=== PATIENT | female | born 1995 | race Hispanic/Latino ===

== ENCOUNTER → 2017-12-09 | Outpatient (REF) | payer OTHER | LOC: M SFHCCLAY 12:41 | DX: Z11.3 Encounter for screening for infections with a predominantly sexual mode of transmission (principal) ==

== ENCOUNTER → 2018-02-12 | Outpatient (REF) | payer OTHER ==
[2018-02-12 12:22] LABS: BASO # 0.1 10^3/uL (0.0-0.2); BASO % 1.1 % (0.0-1.0); EOS # 0.1 10^3/uL (0.0-0.50); EOS % 1.4 % (0.0-3.0); HEMATOCRIT 42.6 % (36.0-47.0); HEMOGLOBIN 14.6 g/dl (12.0-15.5); IMMATURE GRANULOCYTE % 0.2 % (0-3.0); LYMPH # 1.8 10^3/uL (1.5-6.5); LYMPH % 27.5 % (24.0-44.0); MEAN CORPUSCULAR HEMOGLOBIN 30.8 pg (27.0-33.0); MEAN CORPUSCULAR HGB CONC 34.3 g/dl (32.0-36.5); MEAN CORPUSCULAR VOLUME 89.9 fl (80.0-96.0); MONO # 0.6 10^3/uL (0.0-0.8); MONO % 8.5 % (0.0-5.0); NEUTROPHILS % 61.3 % (36.0-66.0); PLATELET COUNT, AUTOMATED 190 10^3/uL (150-450); RED BLOOD COUNT 4.74 10^6/uL (4.00-5.40); RED CELL DISTRIBUTION WIDTH 11.5 % (11.5-14.5); WHITE BLOOD COUNT 6.5 10^3/uL (4.0-10.0)
[2018-02-12 12:47] LABS: ALBUMIN 3.7 GM/DL (3.2-5.2); ALBUMIN/GLOBULIN RATIO 1.28 (1.00-1.93); ALKALINE PHOSPHATASE 52 U/L (45-117); ALT/SGPT 42 U/L (12-78); ANION GAP 7 MEQ/L (8-16); AST/SGOT 27 U/L (7-37); BILIRUBIN,TOTAL 0.4 MG/DL (0.2-1.0); BLOOD UREA NITROGEN 11 MG/DL (7-18); CARBON DIOXIDE LEVEL 26 MEQ/L (21-32); CHLORIDE LEVEL 109 MEQ/L (98-107); CHOLESTEROL LEVEL 206 MG/DL (<200); CHOLESTEROL RISK RATIO 5.722 (<5); CREATININE FOR GFR 0.78 MG/DL (0.55-1.30); FREE THYROXINE INDEX 2.1 % (1.3-4.8); GLOMERULAR FILTRATION RATE > 60.0 (>60); GLUCOSE, FASTING 80 MG/DL (70-100); HDL CHOLESTEROL 36 MG/DL (>40); NON-HDL-C 170 MG/DL; POTASSIUM SERUM 4.2 MEQ/L (3.5-5.1); SODIUM LEVEL 142 MEQ/L (136-145); T UPTAKE 30 % (30-39); THYROXINE (T4) 6.9 UG/DL (4.5-12.0); TOTAL PROTEIN 6.6 GM/DL (6.4-8.2); TRIGLYCERIDES LEVEL 150 MG/DL (<150)
[2018-02-12 13:57] LABS: TOTAL 25(OH) VITAMIN D 17.2 NG/ML (30.0-100.0)
[2018-02-18 08:27] LABS: 17 HYDROXY PROGESTERONE 57 ng/dL (.); TESTOSTERONE FREE (DIRECT) 4.5 pg/mL (0.0-4.2)
== END ==
LOC: M SFHCCLAY 08:42
DX: I10 Essential (primary) hypertension (principal); K21.9 Gastro-esophageal reflux disease without esophagitis; D35.2 Benign neoplasm of pituitary gland; L64.9 Androgenic alopecia, unspecified
CPT/HCPCS: 84146

== ENCOUNTER → 2018-06-17 | Outpatient (REF) | payer OTHER ==
[2018-06-17 17:04] LABS: CHOLESTEROL RISK RATIO 6.303 (<5)
[2018-06-17 17:08] LABS: TOTAL 25(OH) VITAMIN D 21.5 NG/ML (30.0-100.0)
== END ==
LOC: M SFHCCLAY 09:20
PROVIDERS: ATTEND Nurse Practitioner Family
DX: E78.49 Other hyperlipidemia (principal); E55.9 Vitamin D deficiency, unspecified

== ENCOUNTER → 2018-10-19 | Outpatient (CLI) | payer OTHER ==
[~2018-10-19] MED LIST: ACET1TAB16 PO; BIOT2500 PO; CABE0.5T PO; COLA100C5 PO; IBUP80TA PO; LOSA25TA14 PO; PROHANCE 279.3MG/ML 15ML VIAL (A9576) As Ordered ONE; PROHANCE 279.3MG/ML 5ML VIAL (A9576) As Ordered ONE; TRAM50TA2 PO; ZOLO50TA PO
--- NOTE | 2018-10-19 13:45 | REP ---
MRI PELVIS WITH AND WITHOUT CONTRAST: TECHNIQUE: Multiple sequences obtained in the axial, coronal, and sagittal planes prior to and following the intravenous administration of 18 mL ProHance. The uterus is markedly enlarged. It measures approximately 17.0 x 8.3 x 11.5 cm. Extensive fibroid changes are seen. A dominant intramural fibroid on the left involving the body of the uterus measures approximately 7.6 x 6.3 x 7.1 cm. This demonstrates diffuse enhancement in a mildly heterogeneous pattern. A large heterogeneous mass is seen in the endometrial canal inferiorly which is presumed to represent a submucosal fibroid. This demonstrates somewhat heterogeneous low signal on T1, with areas of both low and high signal diffusely on T2-weighted images. This measures approximately 7.9 x 5.8 x 6.3 cm. This demonstrates diffuse heterogeneous enhancement. 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 The inferior margin is at the internal cervical os. More superiorly in the fundus, there is a lobulated mass or conglomerate of small masses in the endometrial canal, likely representing a lobulated or conglomerate of submucosal fibroids, slightly hyperintense on T2 and demonstrating mild scattered enhancement. This measures about 4.2 x 3.1 x 2.8 cm. In the posterior fundal myometrium in an intramural location, another dominant fibroid measures approximately 3.9 x 3.3 x 4.2 cm. There are multiple other smaller fibroids scattered throughout the myometrium predominantly in the body and fundus. Portions of the fundal endometrium are seen but otherwise, the more inferior endometrium is obliterated by the extensive fibroid changes. Both ovaries are normal in size with no evidence of mass or cyst. Both are located in the superior pelvis and contain multiple normal size follicles. They are located adjacent to the uterine fundus bilaterally. There is no other evidence of pelvic mass or adenopathy. I do not see significant free fluid. IMPRESSION: Markedly enlarged uterus with extensive fibroid changes. The largest leiomyomas are measured and details are given above. There appears to be a dominant left uterine body intramural leiomyoma, a submucosal leiomyoma in the lower uterine segment demonstrating signal characteristics and enhancement most consistent with myoid degeneration, a submucosal fibroid or conglomerate of fibroids in the region of the fundal endometrium and a posterior fundal intramural leiomyoma. Multiple other smaller intramural leiomyomas are also visualized diffusely, predominantly in the body and fundus of the uterus. Electronically Signed by Kendall John MD 10/19/2018 05:40 P
== END ==
LOC: M RAD 09:02
PROVIDERS: ATTEND Obstetrics & Gynecology
DX: D25.9 Leiomyoma of uterus, unspecified (principal)
CPT/HCPCS: 72197; A9576

== ENCOUNTER 2018-10-26 09:36 | Inpatient (IN) | payer OTHER ==
[~2018-10-26] VITALS: Ht 167.6 cm; Wt 91.2 kg
[~2018-10-26 09:36] MED LIST changes: -ACET1TAB16 PO; -COLA100C5 PO; -IBUP80TA PO; -PROHANCE 279.3MG/ML 15ML VIAL (A9576) As Ordered ONE; -PROHANCE 279.3MG/ML 5ML VIAL (A9576) As Ordered ONE
[2018-10-26 10:01] LABS: MEAN CORPUSCULAR HEMOGLOBIN 26.1 pg (27.0-33.0); MEAN CORPUSCULAR HGB CONC 31.4 g/dl (32.0-36.5); MEAN CORPUSCULAR VOLUME 83.1 fl (80.0-96.0); PLATELET COUNT, AUTOMATED 239 10^3/uL (150-450); RED BLOOD COUNT 4.21 10^6/uL (4.00-5.40); WHITE BLOOD COUNT 6.6 10^3/uL (4.0-10.0)
[2018-10-26] MEDS ORDERED: ceFAZolin 2 GM/D5W 50 ML IV BAG (J0690 PER 500MG) As Ordered ONE (10:06)
[2018-10-26] MEDS ORDERED: HYDROmorphone HCL 2 MG/ML 1ML VIAL (J1170) As Ordered ONE (10:10)
[2018-10-26] MEDS ORDERED: fentaNYL 100 MCG/2 ML INJECTION (J3010) As Ordered ONE (10:11)
[2018-10-26] MEDS ORDERED: MIDAZOLAM INJ 2 MG/2 ML VIAL (J2250) As Ordered ONE (10:12)
[2018-10-26 10:20] LABS: HCG, SERUM QUALITATIVE NEGATIVE (NEGATIVE)
[2018-10-26] MEDS ORDERED: METOCLOPRAMIDE INJ 10MG/2ML VIAL (J2765) As Ordered ONE (10:21)
[2018-10-26] MEDS ORDERED: KETOROLAC 60 MG/2 ML VIAL (J1885) As Ordered ONE (10:21)
[2018-10-26] MEDS ORDERED: ONDANSETRON 4MG/2ML VIAL (J2405) As Ordered ONE (10:21)
[2018-10-26] MEDS ORDERED: LIDOCAINE 2% INJ 100 MG/5 ML SDV (FOR ANES.) As Ordered ONE (10:21)
[2018-10-26] MEDS ORDERED: dexameTHASONE 4 MG/ML 1ML VIAL (J1100) As Ordered ONE (10:21)
[2018-10-26] MEDS ORDERED: PROPOFOL 200 MG/20 ML VIAL As Ordered ONE (10:21)
[2018-10-26] MEDS ORDERED: ACETAMINOPHEN 1000MG 100ML IV BTL (OFIRMEV) (J0131 PER 10MG) As Ordered ONE (10:21)
[2018-10-26] MEDS ORDERED: ROCURONIUM BROMIDE 50 MG/5 ML VIAL As Ordered ONE ×3 (10:21→12:41)
[2018-10-26] MEDS ORDERED: PROPOFOL 500 MG/50 ML VIAL As Ordered ONE (10:22)
[2018-10-26] MEDS ORDERED: LR 1,000 ML IV ONE (10:30)
[2018-10-26] MEDS ORDERED: SUGAMMADEX SODIUM 500 MG/5 ML VIAL (BRIDION) As Ordered ONE (10:44)
[2018-10-26] MEDS ORDERED: METHYLENE BLUE 0.5% (5MG/ML) 10 ML AMP (PROVAYBLUE)(Q9968 PER 1MG) As Ordered ONE (10:49)
[2018-10-26] MEDS ORDERED: PHENYLephrine HCL 500 MCG/5 ML (100MCG/ML) SYRINGE (J2370) As Ordered ONE ×2 (12:26→12:29)
[2018-10-26] MEDS ORDERED: ePHEDrine SULFATE 25 MG/5 ML(5MG/ML) SYRINGE As Ordered ONE (12:31)
[2018-10-26] MEDS ORDERED: ATROPINE SULF 0.4 MG/ML 1ML VIAL (J0461) As Ordered ONE (12:32)
[2018-10-26] MEDS ORDERED: MORPHINE 1MG/ML IN 0.9% NACL 100ML IV BAG As Ordered ONE (15:35)
[2018-10-26] MEDS ORDERED: NS 1,000 ML IV SCH ×2 (15:44)
[2018-10-26] MEDS ORDERED: ONDANSETRON 4MG/2ML VIAL (J2405) IV PRN ×2 (15:45)
[2018-10-26] MEDS ORDERED: LR 1,000 ML IV SCH (15:45)
[2018-10-26] MEDS ORDERED: NALBUPHINE HCL 10 MG/ML AMP (J2300) IV PRN (15:45)
[2018-10-26] MEDS ORDERED: traMADol 50 MG TAB PO PRN (15:45)
[2018-10-26] MEDS ORDERED: MORPHINE 1MG/ML IN 0.9% NACL 100ML IV BAG IV PRN (15:45)
[2018-10-26] MEDS ORDERED: diphenhydrAMINE INJ 50MG/ML VIAL (J1200) IV PRN (15:45)
[2018-10-26] MEDS ORDERED: PROMETHAZINE INJ 25 MG/ML VIAL (J2550) IV PRN (15:45)
[2018-10-26] MEDS ORDERED: PERCOCET 5MG/325MG TAB PO PRN (15:45)
[2018-10-26] MEDS ORDERED: EPIDURAL/PCA KEYS XX PRN (15:45)
[2018-10-26] MEDS ORDERED: NALOXONE INJ 0.4 MG/1 ML VIAL (J2310) IV PRN (15:45)
[2018-10-26] MEDS ORDERED: KETOROLAC 30 MG/ML VIAL (J1885) IV PRN (15:45)
[2018-10-26] MEDS ORDERED: fentaNYL 100 MCG/2 ML INJECTION (J3010) IV PRN (15:45)
[2018-10-26] MEDS ORDERED: METOCLOPRAMIDE INJ 10MG/2ML VIAL (J2765) IV PRN (15:45)
[2018-10-26 16:24] LABS: HEMATOCRIT 32.3 % (36.0-47.0); HEMOGLOBIN 10.1 g/dl (12.0-15.5); MEAN CORPUSCULAR HEMOGLOBIN 26.3 pg (27.0-33.0); MEAN CORPUSCULAR HGB CONC 31.3 g/dl (32.0-36.5); MEAN CORPUSCULAR VOLUME 84.1 fl (80.0-96.0); PLATELET COUNT, AUTOMATED 215 10^3/uL (150-450); RED BLOOD COUNT 3.84 10^6/uL (4.00-5.40); WHITE BLOOD COUNT 15.6 10^3/uL (4.0-10.0)
[2018-10-26 17:25] VITALS: BP 133/79
[2018-10-26 17:45] VITALS: BP 128/80
[2018-10-26 19:15] VITALS: BP 131/81
[2018-10-26] MEDS: DOCUSATE SODIUM 100 MG CAP PO SCH (20:14)
[2018-10-26] MEDS: SERTRALINE HCL 50 MG TAB PO SCH (20:14)
[2018-10-26] MEDS: LOSARTAN 25 MG TAB PO SCH (20:14)
[2018-10-26 20:15] VITALS: BP 132/80
[2018-10-26] MEDS: KETOROLAC 30 MG/ML VIAL (J1885) IV SCH (20:15)
[2018-10-26 21:13] VITALS: BP 132/76
[2018-10-26 22:00] VITALS: BP 132/81
[2018-10-27] VITALS (8 sets, daily range): BP systolic 108–135; BP diastolic 64–80
[2018-10-27] MEDS: KETOROLAC 30 MG/ML VIAL (J1885) IV SCH ×3 (03:12→15:12)
[2018-10-27 07:25] LABS: BASO % 0.2 % (0.0-1.0); LYMPH # 1.4 10^3/uL (1.5-6.5); MEAN CORPUSCULAR HEMOGLOBIN 26.4 pg (27.0-33.0); MONO # 1.5 10^3/uL (0.0-0.8); NEUTROPHILS # 10.8 10^3/uL (1.8-7.7); NEUTROPHILS % 78.2 % (36.0-66.0); PLATELET COUNT, AUTOMATED 200 10^3/uL (150-450); RED BLOOD COUNT 3.41 10^6/uL (4.00-5.40); WHITE BLOOD COUNT 13.8 10^3/uL (4.0-10.0)
[2018-10-27] MEDS: DOCUSATE SODIUM 100 MG CAP PO SCH ×2 (08:52→20:56)
--- NOTE | 2018-10-27 08:59 | NUR ---
Progress note Postoperative day #1 S: Pain well controlled. Feeling well/improved. She is ambulating without any difficulty. Malik catheter recently removed. Tolerating a regular diet. Vaginal bleeding is minimal. Denies fever, chills, nausea, vomiting, headache, shortness breath, chest pain. O: Normotensive, normal heart rate, afebrile Urine output adequate Heart regular rate and rhythm Lungs clear to auscultation bilaterally Abdomen soft, nontender, nondistended, no guarding or rebound tenderness. Incision bandage dry Extremities nonedematous, nontender. SCDs are on and functioning Labs: Preoperative H&H: 11.0/35.0 Immediate postop H&H: 10.1/32.3 (1 unit packed red blood cells transfusion intraoperatively) Postoperative day 1 H&H: 9.0/29.0 A/P: Postoperative day #1 status post total abdominal hysterectomy and cystoscopy. Patient is recovering well. She is hemodynamically stable, afebrile, with good pain control. -Routine postoperative care and advancement; to void spontaneously later this morning -Intraoperative course reviewed -Postoperative care instructions reviewed. -Anticipate discharge to home later this evening or tomorrow morning. Karolyn Abad, DO
--- NOTE | 2018-10-27 18:55 | RO ---
DATE OF PROCEDURE: 10/26/2018 PREOPERATIVE DIAGNOSIS: Symptomatic uterine leiomyoma, abnormal uterine bleeding and chronic pelvic pain. POSTOPERATIVE DIAGNOSIS: Symptomatic uterine leiomyoma, abnormal uterine bleeding and chronic pelvic pain. PROCEDURE PERFORMED: Total abdominal hysterectomy and cystoscopy. SURGEON: Torrey Abad DO STEEL TESTER: David Starks MD. (Essential role in surgical site exposure and assistance with all aspects of the hysterectomy.) ANESTHESIA TYPE: General endotracheal. SPECIMENS TO PATHOLOGY: Uterus and cervix. ESTIMATED BLOOD LOSS: 500 mL. FLUIDS REPLACED: 2500 mL lactated Ringer's and one unit of packed red blood cells. DRAINS: Urine output Malik catheter 500 mL. COMPLICATIONS: None. PREOPERATIVE ANTIBIOTICS: Ancef 2 grams IV times one given within 30 minutes of the start of the procedure. INDICATION: The patient is a 23-year-old 0 with a longstanding history of a leiomyomatous uterus that has caused abnormal uterine bleeding and chronic pelvic pain. She already had a laparoscopic myomectomy in 2014. Since then, she's experienced regrowth of several large fibroids obliterating the uterine cavity, and there is not any normal uterus that is seen worth saving to preserve fertility per a recent MRI. She has been counseled regarding the MRI findings, and she is ready to proceed with a total abdominal hysterectomy with the plan of ovarian retention. INTRAOPERATIVE FINDINGS: Enlarged leiomyomatous uterus consistent with MRI findings, very large lower uterine segment/cervical fibroid, which made it very difficult to initially elevate the uterus out of the pelvis. See dictation for further details. Normal adnexa and ovaries bilaterally. DESCRIPTION OF PROCEDURE: After the patient was counseled and consented on the risks, benefits, indications and alternatives of the procedure, informed consent was obtained. She was taken to the operating room with an IV running and placed on the operating table in dorsal supine position. General anesthesia was administered, and the airway secured without any difficulty. She was placed in the low lithotomy position. She was prepared and draped in the normal sterile fashion. A time-out was performed per protocol. Malik catheter had been placed under sterile conditions. After the time out, a Pfannenstiel incision was made with a 10 blade and carried down to the level of the rectus sheath fascia. The rectus sheath fascia was incised in the midline, and the fascia was extended bilaterally with Rashid scissors. The intraperitoneal cavity was elevated with the use of Abida forceps and hemostats. The peritoneum was incised with Metzenbaum scissors without any difficulty. A large omental adhesion to the anterior abdominal wall and fundus of the uterus was reduced with sharp dissection and with use of the Bovie cautery. After releasing the uterus and omentum from the anterior abdominal wall, the bowel was packed away with damp laparotomy sponges. The Bookwalter retractor was placed. Abida clamps were placed on each cornu of the uterus, and we were unable to elevate the uterus given the presence of the large fibroid taking up all the space in the posterior cul-de-sac. The round ligaments on each side were able to be identified. The round ligaments were clamped, suture ligated and then cut. The right and left broad ligaments, anteriorly and posteriorly, were dissected with the Metzenbaum scissors. A window was created underneath the utero-ovarian ligament on each side. The utero-ovarian ligaments were clamped, cut and suture ligated, thus freeing both ovaries. Both IP ligaments were intact, thus preserving the vascular flow to both ovaries. The ovaries were pushed cephalad along with the bowel packing. The uterine vasculature on each side was identified, then sequentially clamped, cut and suture ligated using Mary-Ivan clamps. Eventually, we reached the level of the uterine vasculature at the level of the cervix. The uterus was quite abnormal in its size, shape and contour. It was very difficult to continue on without amputating the uterus since we had clamped the uterine vasculature and sequentially moved it down the uterine vasculature close to the level of the cervix. The decision was made to remove the Bookwalter retractor, and to amputate the body of the uterus just above our last suture on each side. This allowed us to see the large fibroid that was in the lower uterine segment/cervix. The amputation was performed with the Bovie cautery and with Rashid scissors. The large cervical fibroid that remained was removed by shelling it out of what remained of the dilated internal os of the cervix and lower uterine segment. We sequentially clamped, cut, and suture ligated underneath this tissue, thus amputating what remained of the cervix and lower uterine segment. The specimen was sent to pathology for permanent section. The remaining vaginal cuff was closed with 0# Vicryl with a series of [id number] stitches. The peritoneum was incorporated into this vaginal cuff closure. The uterosacral ligaments were easily identified. The ureters were identified and noted to be well away from this area of dissection and surgery. After closure of the vagina and achieving hemostasis, the decision was made to perform a cystoscopy. The Malik catheter was removed. The cystoscope was placed into the bladder with excellent distension of the bladder. No suture material noted in the dome of the bladder, and no cystotomy was noted. Bilateral UO jets were visualized, thus indicating intact ureters. The cystoscope was removed. A new Malik catheter was placed. A glove switch was performed. Attention was turned back to the abdomen. The vaginal cuff was re-inspected. A small amount of peritoneal bleeding was cauterized with the Bovie. An additional [id number] stitch was placed over the vaginal cuff centrally. Excellent hemostasis was noted. The pelvis was irrigated. After evacuating the irrigation, Aleksandra was placed over the vaginal cuff. Excellent hemostasis was noted after placement of the Aleksandra. All the laparotomy sponges were removed and the adnexa/ovaries on each side were inspected and noted be hemostatic without any masses. After removal of all the laparotomy sponges, the official sponge, needle and instrument counts were correct. The peritoneum was closed with #3-0 Vicryl in a running fashion. The rectus muscle bellies were noted to be hemostatic. The fascia was closed with #0 Vicryl in running fashion. The subcutaneous layer was closed with #3-0 Vicryl in running fashion, and the skin was closed with #4-0 Monocryl in subcuticular fashion. Bandage was placed over the incision. Sponge, lap, needle and instrument counts were again correct. I performed one final vaginal exam. All instruments had been removed from the vagina. There was no cervix palpated on vaginal exam. The patient tolerated the entire procedure very well. She was transferred to the post-anesthesia care unit (PACU) in good and stable condition. ANDRAE
[2018-10-27] MEDS ORDERED: ACETAMINOPH W/CODEINE #3 TAB UD PO PRN ×2 (20:00)
[2018-10-27] MEDS: SERTRALINE HCL 50 MG TAB PO SCH (20:55)
[2018-10-27] MEDS: LOSARTAN 25 MG TAB PO SCH (20:56)
[2018-10-27] MEDS: IBUPROFEN 800 MG TAB PO SCH (23:22)
[2018-10-28 04:00] VITALS: BP 113/68
[2018-10-28] MEDS: IBUPROFEN 800 MG TAB PO SCH (06:27)
[2018-10-28] MEDS ORDERED: ACET1TAB16 PO (07:15)
[2018-10-28] MEDS ORDERED: IBUP80TA PO (07:15)
[2018-10-28] MEDS ORDERED: COLA100C5 PO (07:15)
[2018-10-28 08:00] VITALS: BP 116/62
[2018-10-28] MEDS: DOCUSATE SODIUM 100 MG CAP PO SCH (08:49)
--- NOTE | 2018-10-28 09:34 | NUR ---
Discharge summary Admission date: 10/26/18 Discharge date: 10/28/18 Admission diagnosis: symptomatic uterine leiomyomas; abnormal uterine bleeding and chronic pelvic pain. Discharge diagnosis: same. Discharge medications: Tylenol #3, Motrin, Colace Discharge summary: 23yo G0 with a long-standing history of a symptomatic fibroid uterus. She was extensively counseled regarding treatment options during her care as an outpatient. She elected to proceed with hysterectomy. She underwent a total abdominal hysterectomy (uterus and cervix). Ovaries were retained. Intraoperative blood loss was estimated to be around 500ml. She received one unit of prbc during her surgery. No intraoperative complications were encountered. By postoperative day #2 she was meeting all discharge criteria. She has plans to return to [employer] in the [facility]. Her flight is tomorrow. She is stable for her planned air travel. Her mother will be accompanying her. Routine fever, infectious, pain, bleeding, and wound care instructions were reviewed. On date of hospital discharge: S: Pain well controlled. Feeling well/improved. She is ambulating without any difficulty. Malik catheter recently removed. Tolerating a regular diet. Vaginal bleeding is minimal. Denies fever, chills, nausea, vomiting, headache, shortness breath, chest pain. O: Normotensive, normal heart rate, afebrile Urine output adequate Heart regular rate and rhythm Lungs clear to auscultation bilaterally Abdomen soft, nontender, nondistended, no guarding or rebound tenderness. Incision bandage dry Extremities nonedematous, nontender. SCDs are on and functioning Labs: Preoperative H&H: 11.0/35.0 Immediate postop H&H: 10.1/32.3 (1 unit packed red blood cells transfusion intraoperatively) Postoperative day 1 H&H: 9.0/29.0 A/P: Postoperative day #2 status post total abdominal hysterectomy and cystoscopy. Patient is recovering well. She is hemodynamically stable, afebrile, with good pain control. See discharge summary above. Karolyn Abad DO
== END 2018-10-28 11:00 | disposition home or self-care (01) | DRG 743 ==
LOC: M OR 09:36 → M PED 17:10
PROVIDERS: ADMIT Obstetrics & Gynecology; ATTEND Obstetrics & Gynecology
PROC: 0UTC0ZZ Resection of Cervix, Open Approach (ICD-10-PCS; 2018-10-26)
PROC: 0UT90ZZ Resection of Uterus, Open Approach (ICD-10-PCS; principal; 2018-10-26 11:15)
DX: D25.9 Leiomyoma of uterus, unspecified (principal); N93.9 Abnormal uterine and vaginal bleeding, unspecified

== ENCOUNTER → 2019-06-28 | Outpatient (REF) | payer OTHER ==
[~2019-06-28] MED LIST changes: +ACET1TAB16 PO; +COLA100C5 PO; +IBUP80TA PO
[2019-06-29 16:02] LABS: CHLAMYDIA DNA AMPLIFICATION NEGATIVE (NEGATIVE); GC DNA AMPLIFICATION NEGATIVE (NEGATIVE)
== END ==
LOC: M SFHCWAGY 11:42
PROVIDERS: ATTEND Obstetrics & Gynecology
DX: Z12.4 Encounter for screening for malignant neoplasm of cervix (principal); R87.610 Atypical squamous cells of undetermined significance on cytologic smear of cervix (ASC-US)
CPT/HCPCS: 87624; 87661; G0123

== ENCOUNTER → 2020-02-21 | Outpatient (CLI) | payer OTHER ==
--- NOTE | 2020-03-02 15:25 | REP ---
FOCUSED LEFT BREAST SONOGRAPHY HISTORY: Left breast lump. FINDINGS: Scanning is performed in the area of the palpable lump in the upper outer quadrant of the left breast. Heterogeneous fibroglandular background echotexture is seen. No cyst, mass, or acoustic shadowing is seen. IMPRESSION: BI-RADS Category 1 negative findings. Clinical follow-up is advised. ANDRAE
== END ==
LOC: M WHC 14:50
PROVIDERS: ATTEND Nurse Practitioner Women's Health
DX: N63.20 Unspecified lump in the left breast, unspecified quadrant (principal)